=== PATIENT | female | born 1975 | race Caucasian/White ===

== ENCOUNTER 2017-01-20 07:48 | Emergency (ER) | payer MEDICAID ==
[2017-01-20] MEDS ORDERED: Sodium Chloride 0.9% 1,000 ML IV ONE (08:31)
[2017-01-20] MEDS ORDERED: Iohexol 240 (50 ml) PO STA (08:33)
--- NOTE | 2017-01-20 08:34 | C.PDOC ---
History Of Present Illness 41-year-old female, s/p gastric sleeve approximately 1.5 months ago, presents to the emergency department with complaints of left upper quadrant abdominal pain that is associated with mild nausea. Pain is severe, rated as a 7/10. Patient denies fever, diarrhea, dysuria, chest pain, or shortness of breath. Time Seen by Provider: 01/20/17 08:10 Chief Complaint (Nursing): Abdominal Pain Past Medical History Reviewed: Historical Data, Nursing Documentation, Vital Signs Vital Signs: Last Vital Signs Temp 99 F 01/20/17 13:13 Pulse 106 H 01/20/17 13:13 Resp 16 01/20/17 13:13 BP 111/77 01/20/17 13:13 Pulse Ox 98 01/20/17 13:13 - Social History Hx Alcohol Use: No Hx Substance Use: No - Immunization History Hx Tetanus Toxoid Vaccination: No Hx Influenza Vaccination: No Hx Pneumococcal Vaccination: No Review Of Systems Except As Marked, All Systems Reviewed And Found Negative. Constitutional: Negative for: Fever, Chills Cardiovascular: Negative for: Chest Pain, Palpitations Respiratory: Negative for: Shortness of Breath Gastrointestinal: Positive for: Nausea, Abdominal Pain. Negative for: Vomiting Musculoskeletal: Negative for: Back Pain Neurological: Negative for: Weakness, Numbness, Headache, Dizziness Physical Exam - Physical Exam Appears: Non-toxic, No Acute Distress Skin: Warm, Dry, No Rash Head: Atraumatic, Normacephalic Eye(s): bilateral: Normal Inspection, PERRL Nose: Normal Oral Mucosa: Moist Lips: Normal Appearing Neck: Normal ROM Cardiovascular: Rhythm Regular, No Murmur Respiratory: Normal Breath Sounds, No Accessory Muscle Use Gastrointestinal/Abdominal: Soft, Tenderness (LUQ ), Guarding (mild), No Rebound Extremity: Normal ROM Neurological/Psych: Oriented x3, Normal Speech ED Course And Treatment - Laboratory Results Result Diagrams: 01/20/17 08:31 01/20/17 08:53 Urine POC: Negative O2 Sat by Pulse Oximetry: 100 (on RA) Pulse Ox Interpretation: Normal Medical Decision Making Medical Decision Making: The case was discussed with Dr. Pearce (Urologist environmental compliance engineer) who states that the patient is safe for discharge. Disposition - Disposition Referrals: Philip Pearce Jr., MD [Staff Provider] - Disposition: HOME/ ROUTINE Disposition Time: 12:52 Condition: GOOD Additional Instructions: Follow up with the medical doctor within 1-2 days. Return if worsened. Prescriptions: Naproxen [Naprosyn] 500 mg PO BID #20 tab Ondansetron ODT [Zofran ODT] 1 odt PO BID PRN #10 odt PRN Reason: Nausea/Vomiting oxyCODONE/Acetaminophen [Percocet 5/325 mg Tab] 1 tab PO QID PRN #10 tab PRN Reason: Pain Tamsulosin HCl [Flomax] 0.4 mg PO DAILY #10 cap.er.24h Instructions: Renal Colic (ED) Forms: [employer] (Welsh) - Clinical Impression Clinical Impression: Renal colic, Nephrolithiasis - Scribe Statement The provider has reviewed the documentation as recorded by the Scribe (Siddhartha Velarde) All medical record entries made by the Scribe were at my direction and personally dictated by me. I have reviewed the chart and agree that the record accurately reflects my personal performance of the history, physical exam, medical decision making, and the department course for this patient. I have also personally directed, reviewed, and agree with the discharge instructions and disposition.
[2017-01-20] MEDS ORDERED: Iohexol 240 (50 ml) ONE (08:40)
[2017-01-20] MEDS ORDERED: Morphine 4 MG/ML VIAL ONE (08:40)
[2017-01-20] MEDS ORDERED: Sodium Chloride 0.9% 1,000 ML ONE (08:41)
[2017-01-20 08:49] LABS: EOS # 0.1 K/uL (0.0-0.7); LYMPH % 17.3 % (20.0-40.0); MEAN CORPUSCULAR HGB CONC 34.2 g/dL (33.0-37.0); MONO # 0.7 K/uL (0.0-0.8)
[2017-01-20 08:54] LABS: BASO % 0.2 % (0.0-2.0); EOS % 0.6 % (0.0-4.0); HEMATOCRIT 41.3 % (34.0-47.0); LYMPH # 1.9 K/uL (1.0-4.3); MEAN CELL VOLUME 82.6 fL (81.0-99.0); MEAN CORPUSCULAR HEMOGLOBIN 28.2 pg (27.0-31.0); MEAN PLATELET VOLUME 12.3 fL (7.2-11.7); MONO % 6.4 % (0.0-10.0); RED CELL DISTRIBUTION WIDTH 14.2 % (11.5-14.5); WHITE BLOOD COUNT 10.7 K/uL (4.8-10.8)
[2017-01-20 09:03] LABS: RBC URINE 2831 /hpf (0-3); WBC URINE 24 /hpf (0-5)
[2017-01-20 09:03] LABS: ALB/GLOB RATIO 1.5 (1.0-2.1); ALKALINE PHOSPHATASE 85 U/L (38-126); ALT/SGPT 50 U/L (9-52); AST/SGOT 26 U/L (14-36); BILIRUBIN,TOTAL 1.1 mg/dL (0.2-1.3); BLOOD UREA NITROGEN 10 mg/dL (7-17); CARBON DIOXIDE 25 mmol/L (22-30); CHLORIDE 102 mmol/L (98-107); GFR AFRICAN-AMERICAN > 60; GLUCOSE,RANDOM 106 mg/dL (65-105); POTASSIUM 3.8 mmol/L (3.6-5.2); SODIUM 137 mmol/L (132-148); TOTAL PROTEIN 6.9 g/dL (6.3-8.3)
[2017-01-20 09:04] LABS: URINE BILIRUBIN MODERATE (NEGATIVE); URINE COLOR YELLOW (YELLOW); URINE GLUCOSE (UA) NEGATIVE (Normal); URINE KETONE >80 mg/dL (NEGATIVE)
[2017-01-20 09:05] LABS: URINE BLOOD LARGE (NEGATIVE); URINE LEUKOCYTE ESTERASE SMALL Leu/uL (Negative); URINE PROTEIN 100 mg/dL (NEGATIVE)
[2017-01-20] MEDS ORDERED: Iohexol 300 100 ML IJ ONE (10:13)
[2017-01-20 11:51] VITALS: PULSE 106
--- NOTE | 2017-01-20 12:33 | CT ---
PROCEDURE: CT scan abdomen and pelvis dated 01/20/2017 HISTORY: LUQ abd pain COMPARISON: None. TECHNIQUE: Contiguous axial images of the abdomen and pelvis. Oral contrast was administered. No IV contrast given. Coronal and Sagittal reformats generated. Radiation dose: Total exam DLP = 1098.62 mGy-cm. This CT exam was performed using one or more of the following dose reduction techniques: Automated exposure control, adjustment of the mA and/or kV according to patient size, and/or use of iterative reconstruction technique. FINDINGS: LOWER THORAX: Lung bases demonstrate minor passive type atelectasis right greater than left with suspected trace right effusion. The the the the LIVER: Liver is enlarged measuring nearly 20 cm in CC dimension. Mild to moderate fatty hepatic infiltration. No obvious hepatic mass collection or calcification. Portal and splenic veins are opacified. GALLBLADDER AND BILE DUCTS: Gallbladder is physiologically distended. No evidence of intraluminal gallbladder calculi. . PANCREAS: Unremarkable. No mass. No ductal dilatation. SPLEEN: Unremarkable. No splenomegaly. ADRENALS: The left adrenal gland exhibits a somewhat bilobed nodular appearance. The inferior margin of the left adrenal gland measures approximately 12.9 mm and there is a smaller round/elliptical shaped more hypodense superior component measuring approximately 9 mm. Follow-up CT scan at interval recommended given the Hounsfield units ranging up to low 60s. Right adrenal gland unremarkable. KIDNEYS AND URETERS: There is small approximately 6.3 mm, shaped calculus within the left proximally ureter and a 2nd smaller approximately 3 mm calculus also within the proximal left ureter though slightly slightly more distal in location. The proximally left ureter, left renal pelvis and left renal collecting system mildly dilated. Fluid and infiltration changes is seen surrounding the left kidney suggesting ruptured calyx. . BLADDER: The urinary bladder is physiologically distended. No evidence of intraluminal urinary bladder calculi. REPRODUCTIVE: In situ Copper-T IUD. There is an approximately 2.2 x 1.6 cm left adnexal cyst. APPENDIX: The appendix some unremarkable best seen on not coronal image number [id number]. No periappendiceal inflammatory changes. BOWEL: Evaluation of the bowel is somewhat limited due to to incomplete opacification. Postoperative changes (apparent gastric sleeve procedure) of the stomach. Visualized loops small bowel exhibit normal contour and caliber. No evidence of acute mechanical bowel obstruction into with oral contrast material extending into the colon. Stool and air seen throughout the remaining colon with no definitive evidence of mural wall thickening. Definitive evidence of mural wall thickening. PERITONEUM: Unremarkable. No fluid collection. No free air. Small fat containing umbilical hernia. LYMPH NODES: . There are few small lymph nodes seen right lower quadrant of the abdomen nonspecific. Rule out mesenteric adenitis. VASCULATURE: Unremarkable. No aortic aneurysm. BONES: No fracture or destructive lesion. OTHER FINDINGS: None. IMPRESSION: There are at least 2 small calculi within the proximal left ureter with mild dilatation of the proximal ureter pelvis and collecting system. Fluid and infiltration changes are seen in the perinephric fat consistent with a ruptured calyx. . Small left adnexal cyst. In situ Copper-T IUD. Hepatomegaly. Mild fatty hepatic infiltration. Few small lymph nodes right lower quadrant of the abdomen; rule out mesenteric adenitis. Postoperative changes of gastric sleeve procedure
[2017-01-20 13:15] VITALS: BP 111/77; RESP 16; TEMP 99
[2017-01-20] MEDS ORDERED: Oxycodone/Acetaminophen 5/325 mg Tab PO STA (13:22)
[2017-01-22 15:02] VITALS: O2SAT 100
== END 2017-01-20 13:13 | disposition home or self-care (01) ==
LOC: C.ER 07:48
DX: N20.0 Calculus of kidney (principal)
CPT/HCPCS: 74177; 80053; 81001; 83690; 85025; 96361; 96374; 96375; 99285; J1885; J2270; J2405; J7040; Q9966; Q9967